=== PATIENT | female | born 1945 | race Caucasian/White ===

== ENCOUNTER → 2017-10-29 | Outpatient (REF) | payer MEDICARE, OTHER ==
[2017-10-29 13:01] LABS: BASO % 0.7 % (0.0-1.0); EOS # 0.2 10^3/uL (0.0-0.50); EOS % 3.8 % (0.0-3.0); HEMATOCRIT 42.1 % (36.0-47.0); HEMOGLOBIN 14.5 g/dl (12.0-15.5); IMMATURE GRANULOCYTE % 0.5 % (0-3.0); LYMPH # 0.7 10^3/uL (1.5-4.5); LYMPH % 16.7 % (24.0-44.0); MEAN CORPUSCULAR HEMOGLOBIN 32.3 pg (27.0-33.0); MEAN CORPUSCULAR HGB CONC 34.4 g/dl (32.0-36.5); MEAN CORPUSCULAR VOLUME 93.8 fl (80.0-96.0); MONO # 0.4 10^3/uL (0.0-0.8); NEUTROPHILS # 2.9 10^3/uL (1.8-7.7); NEUTROPHILS % 69.3 % (36.0-66.0); PLATELET COUNT, AUTOMATED 241 10^3/uL (150-450); RED BLOOD COUNT 4.49 10^6/uL (4.00-5.40); RED CELL DISTRIBUTION WIDTH 12.7 % (11.5-14.5); WHITE BLOOD COUNT 4.2 10^3/uL (4.0-10.0)
[2017-10-29 13:17] LABS: TOTAL 25(OH) VITAMIN D 29.9 NG/ML (30.0-100.0)
[2017-10-29 13:18] LABS: FOLATE 7.8 NG/ML; VITAMIN B12 LEVEL 415 PG/ML
[2017-10-29 13:26] LABS: ALBUMIN 3.6 GM/DL (3.2-5.2); ALBUMIN/GLOBULIN RATIO 1.16 (1.00-1.93); ALKALINE PHOSPHATASE 89 U/L (45-117); ALT/SGPT 22 U/L (12-78); ANION GAP 8 MEQ/L (8-16); AST/SGOT 19 U/L (7-37); BILIRUBIN,TOTAL 0.8 MG/DL (0.2-1.0); BLOOD UREA NITROGEN 12 MG/DL (7-18); CALCIUM LEVEL 9.8 MG/DL (8.8-10.2); CARBON DIOXIDE LEVEL 31 MEQ/L (21-32); CHLORIDE LEVEL 100 MEQ/L (98-107); CREATININE FOR GFR 0.84 MG/DL (0.55-1.30); FREE T3 3.5 PG/ML (2.2-4.0); FREE T4 1.14 NG/DL (0.76-1.46); GLOMERULAR FILTRATION RATE > 60.0 (>39); GLUCOSE, FASTING 85 MG/DL (70-100); POTASSIUM SERUM 4.6 MEQ/L (3.5-5.1); SODIUM LEVEL 139 MEQ/L (136-145); TOTAL PROTEIN 6.7 GM/DL (6.4-8.2)
[2017-10-30 11:12] LABS: THYROID PEROXIDASE ANTIBODY 37.3 U/ML (<60.0)
[2017-11-01 00:09] LABS: ANGIOTENSIN 1 CONVERTING ENZYM 87 U/L (14-82); TISSUE TRANSGLUTAMINASE IgA <2 U/mL (0-3)
[2017-11-01 11:11] LABS: LEVETIRACETAM (KEPPRA) 32.6 ug/mL (10.0-40.0); Lyme Disease IgG/IgM Antibodie <0.91 ISR (0.00-0.90); Lyme Disease IgM Ab Quantitati <0.80 index (0.00-0.79); SSA SJOGRENS A <0.2 AI (0.0-0.9); SSB SJOGRENS B <0.2 AI (0.0-0.9)
[2017-11-05 08:12] LABS: VITAMIN B6,PYRIDOXAL PHOSPHATE 4.5 ug/L (2.0-32.8)
[2017-11-05 08:12] LABS: FREE T4 BY DIALYSIS DIRECT 1.4 ng/dL (.)
== END ==
LOC: M LABDRAW1 09:33
DX: D51.0 Vitamin B12 deficiency anemia due to intrinsic factor deficiency (principal); D52.9 Folate deficiency anemia, unspecified; E53.1 Pyridoxine deficiency; R53.83 Other fatigue; E55.9 Vitamin D deficiency, unspecified
CPT/HCPCS: 82746

== ENCOUNTER 2017-11-10 11:33 | Emergency (ER) | payer MEDICARE, OTHER ==
[2017-11-10 12:54] LABS: KETONE, URINE AUTO RFX NEGATIVE (NEGATIVE); NITRITE, URINE AUTO RFX NEGATIVE (NEGATIVE); RBC, URINE AUTO RFX TNTC /HPF (0-3); SPECIFIC GRAVITY UR AUTO RFX 1.015 (1.002-1.035); SQUAM EPITHELIAL CELL UR AURFX 0 /HPF (0-6)
[2017-11-10 12:55] LABS: LEUKOCYTE ESTERASE UR AUTO RFX 2+ (NEGATIVE); WBC, URINE AUTO RFX TNTC /HPF (0-3)
[2017-11-10] MEDS: PHENAZOPYRIDINE 100 MG TAB PO (12:56)
[2017-11-10] MEDS: CIPROFLOXACIN 500 MG TAB PO (12:56)
== END 2017-11-10 13:24 | disposition home or self-care (01) ==
LOC: M ED 11:33
DX: N30.01 Acute cystitis with hematuria (principal); Z88.8 Allergy status to other drugs, medicaments and biological substances; Z88.1 Allergy status to other antibiotic agents; Z79.899 Other long term (current) drug therapy; Z79.82 Long term (current) use of aspirin; Z79.51 Long term (current) use of inhaled steroids
CPT/HCPCS: 81001

== ENCOUNTER → 2018-03-24 | Outpatient (REF) | payer MEDICARE, OTHER ==
[2018-03-24 12:18] LABS: BASO % 0.7 % (0.0-1.0); EOS % 0.2 % (0.0-3.0); HEMATOCRIT 40.7 % (36.0-47.0); HEMOGLOBIN 13.9 g/dl (12.0-15.5); IMMATURE GRANULOCYTE % 0.2 % (0-3.0); LYMPH # 0.9 10^3/uL (1.5-4.5); MEAN CORPUSCULAR HGB CONC 34.2 g/dl (32.0-36.5); MEAN CORPUSCULAR VOLUME 96.7 fl (80.0-96.0); MONO # 0.4 10^3/uL (0.0-0.8); MONO % 9.8 % (0.0-5.0); NEUTROPHILS # 2.8 10^3/uL (1.8-7.7); NEUTROPHILS % 68.1 % (36.0-66.0); PLATELET COUNT, AUTOMATED 190 10^3/uL (150-450); RED BLOOD COUNT 4.21 10^6/uL (4.00-5.40); RED CELL DISTRIBUTION WIDTH 12.3 % (11.5-14.5); WHITE BLOOD COUNT 4.1 10^3/uL (4.0-10.0)
[2018-03-24 12:51] LABS: ALBUMIN 3.1 GM/DL (3.2-5.2); ALBUMIN/GLOBULIN RATIO 1.07 (1.00-1.93); ALKALINE PHOSPHATASE 81 U/L (45-117); ALT/SGPT 23 U/L (12-78); ANION GAP 9 MEQ/L (8-16); AST/SGOT 20 U/L (7-37); BILIRUBIN,TOTAL 0.6 MG/DL (0.2-1.0); BLOOD UREA NITROGEN 16 MG/DL (7-18); CALCIUM LEVEL 8.5 MG/DL (8.8-10.2); CARBON DIOXIDE LEVEL 28 MEQ/L (21-32); CHLORIDE LEVEL 102 MEQ/L (98-107); CHOLESTEROL LEVEL 177 MG/DL (<200); CHOLESTEROL RISK RATIO 1.923 (<5); CREATININE FOR GFR 0.93 MG/DL (0.55-1.30); GLOMERULAR FILTRATION RATE > 60.0 (>39); GLUCOSE, FASTING 83 MG/DL (70-100); HDL CHOLESTEROL 92 MG/DL (>40); LDL CHOLESTEROL 61 MG/DL (<100); NON-HDL-C 85 MG/DL; POTASSIUM SERUM 3.9 MEQ/L (3.5-5.1); SODIUM LEVEL 139 MEQ/L (136-145); TRIGLYCERIDES LEVEL 121 MG/DL (<150)
[2018-03-24 12:55] LABS: MALB URINE SIEMENS 26.3 MG/L; MAU/CREAT RATIO 13.9 MCG/MG (0.0-30.0)
== END ==
LOC: M LABDRAW1 09:37
DX: Z00.01 Encounter for general adult medical examination with abnormal findings (principal); I10 Essential (primary) hypertension
CPT/HCPCS: 84443

== ENCOUNTER 2018-11-28 09:16 | Day surgery (SDC) | payer MEDICARE, OTHER ==
[~2018-11-28] VITALS: Ht 154.9 cm; Wt 65.8 kg
[~2018-11-28 09:16] MED LIST: ADVAIR; ALBU17IN INH; ASPI81TA60; ASPI81TA85 PO; CALTTAB10 PO; CALTTAB6 PO; CEPA0.05 PO; CIPR-249 PO; COUM2.5T17 PO; CREO3600 PO; HYDR200T3 PO; HYDR25TAB; LEVE500T88 PO; LEVE750XR PO; METO37.5 PO; MONT10TA2; MULTCAP PO; NAPR-855 PO; NORT10SO PO; NORT50CA PO; NS 1,000 ML IV ONE; PERC5TAB12 PO; PRED10TA2; PROAAER10 IN; PROP80CA; PROZ10CA7 PO; PYRI1TAB5 PO; RANI1SYP PO; SPIR-10 PO; SPIR1TAB34 PO; SYMB16INH; TYLE325T5 PO; ciclopirox; plaquenil OR
[2018-11-28] MEDS ORDERED: PROPOFOL 200 MG/20 ML VIAL As Ordered ONE (09:47)
[2018-11-28] MEDS ORDERED: LIDOCAINE 2% INJ 100 MG/5 ML SDV (FOR ANES.) As Ordered ONE (09:47)
[2018-11-28] MEDS ORDERED: fentaNYL 100 MCG/2 ML INJECTION (J3010) As Ordered ONE (10:19)
--- NOTE | 2018-11-28 10:26 | ROOR ---
Patient Name: Mariama Bose Procedure Date: 11/28/2018 10:12 AM Date of : 1945 Age: 73 Room: [facility] Gender: Female Note Status: Finalized Procedure: Upper GI endoscopy Indications: Abdominal pain, Dyspepsia Providers: Jeromy TOSCANO MD Referring MD: Tom Neil MD Requesting Provider: Medicines: Monitored Anesthesia Care Complications: No immediate complications. Procedure: Pre-Anesthesia Assessment: - The heart rate, respiratory rate, oxygen saturations, blood pressure, adequacy of pulmonary ventilation, and response to care were monitored throughout the procedure. The Endoscope was introduced through the mouth, and advanced to the second part of duodenum. The upper GI endoscopy was accomplished without difficulty. The patient tolerated the procedure well. Findings: The esophagus was normal. The stomach was normal. The examined duodenum was normal. Impression: - Normal esophagus. - Normal stomach. - Normal examined duodenum. - No specimens collected. Recommendation: - Continue present medications. - Observe patient's clinical course. Jeromy Toscano MD Jeromy TOSCANO MD 11/28/2018 10:26:35 AM Electronically signed by Jeromy TOSCANO MD Number of Addenda: 0 Note Initiated On: 11/28/2018 10:12 AM Estimated Blood Loss: Estimated blood loss: none.
[2018-11-28] MEDS ORDERED: GLYCOPYRROLATE INJ 0.2 MG/ML 2 ML VIAL As Ordered ONE (10:33)
--- NOTE | 2018-11-28 10:46 | ROOR ---
Patient Name: Mariama Bose Procedure Date: 11/28/2018 10:14 AM Date of : 1945 Age: 73 Room: [facility] Gender: Female Note Status: Finalized Procedure: Colonoscopy Indications: Generalized abdominal pain, Change in bowel habits Providers: Jeromy TOSCANO MD Referring MD: Tom Neil MD Requesting Provider: Medicines: Monitored Anesthesia Care Complications: No immediate complications. Procedure: Pre-Anesthesia Assessment: - The heart rate, respiratory rate, oxygen saturations, blood pressure, adequacy of pulmonary ventilation, and response to care were monitored throughout the procedure. The Colonoscope was introduced through the anus and advanced to 10 cm into the ileum. The colonoscopy was performed without difficulty. The patient tolerated the procedure well. The quality of the bowel preparation was good. Findings: The perianal and digital rectal examinations were normal. Two sessile polyps were found in the sigmoid colon. The polyps were diminutive in size. These polyps were removed with a cold snare. Resection and retrieval were complete. Mild sigmoid diverticulosis and small internal hemorrhoids. The exam was otherwise without abnormality on direct and retroflexion views. Biopsies for histology were taken with a cold forceps from the entire colon for evaluation of microscopic colitis. Impression: - Two diminutive polyps in the sigmoid colon, removed with a cold snare. Resected and retrieved. - Mild sigmoid diverticulosis and small internal hemorrhoids. - The examination was otherwise normal on direct and retroflexion views. - Biopsies were taken with a cold forceps from the entire colon for evaluation of microscopic colitis. Recommendation: - Telephone endoscopist for pathology results in 2 weeks. - Repeat colonoscopy in 5 years for surveillance. Jeromy Toscano MD Jeromy TOSCANO MD 11/28/2018 10:45:42 AM Electronically signed by Jeromy TOSCANO MD Number of Addenda: 0 Note Initiated On: 11/28/2018 10:14 AM Estimated Blood Loss: Estimated blood loss: none.
[2018-11-28 11:21] VITALS: BP 115/61
== END 2018-11-28 11:21 | disposition home or self-care (01) ==
LOC: M OPP 09:16
PROVIDERS: ATTEND Internal Medicine Gastroenterology
DX: R10.84 Generalized abdominal pain (principal); D12.5 Benign neoplasm of sigmoid colon; K57.30 Diverticulosis of large intestine without perforation or abscess without bleeding; K64.8 Other hemorrhoids; R19.4 Change in bowel habit; R10.13 Epigastric pain
CPT/HCPCS: 43235; 45380; 45385; 88305; J3010

== ENCOUNTER 2019-02-02 06:09 | Day surgery (SDC) | payer MEDICARE, OTHER ==
[~2019-02-02] VITALS: Ht 154.9 cm; Wt 66.6 kg
[~2019-02-02 06:09] MED LIST changes: +ACET-861 PO; +ATOR1TAB19 PO; +BUSP5TA PO; +FLUO20CA19 PO; +FLUO40CA PO; +LIDOCAINE 1% MDV 20ML VIAL SQ PRN; +LOPE2TAB12 PO; -NS 1,000 ML IV ONE; +PLAQ200T4 PO; +PROP120C PO
[2019-02-02] MEDS ORDERED: ONDANSETRON 4MG/2ML VIAL (J2405) As Ordered ONE (06:59)
[2019-02-02] MEDS ORDERED: dexameTHASONE 4 MG/ML 1ML VIAL (J1100) As Ordered ONE (06:59)
[2019-02-02] MEDS ORDERED: PROPOFOL 200 MG/20 ML VIAL As Ordered ONE (06:59)
[2019-02-02] MEDS ORDERED: LIDOCAINE 2% INJ 100 MG/5 ML SDV (FOR ANES.) As Ordered ONE (06:59)
[2019-02-02] MEDS ORDERED: ROCURONIUM BROMIDE 50 MG/5 ML VIAL As Ordered ONE (06:59)
[2019-02-02] MEDS ORDERED: SUGAMMADEX SODIUM 500 MG/5 ML VIAL (BRIDION) As Ordered ONE (06:59)
[2019-02-02] MEDS ORDERED: KETOROLAC 60 MG/2 ML VIAL (J1885) As Ordered ONE (07:00)
[2019-02-02] MEDS ORDERED: LR 1,000 ML IV ONE (07:00)
[2019-02-02] MEDS ORDERED: ACETAMINOPHEN 1000MG 100ML IV BTL (OFIRMEV) (J0131 PER 10MG) As Ordered ONE (07:00)
[2019-02-02] MEDS ORDERED: KETAMINE HCL 200 MG/20 ML VIAL As Ordered ONE (07:00)
[2019-02-02] MEDS ORDERED: fentaNYL 100 MCG/2 ML INJECTION (J3010) As Ordered ONE (07:01)
[2019-02-02] MEDS ORDERED: MIDAZOLAM INJ 2 MG/2 ML VIAL (J2250) As Ordered ONE (07:01)
[2019-02-02] MEDS ORDERED: BUPIVACAINE/EPIN 0.25% 30 ML VIAL As Ordered ONE (07:09)
[2019-02-02 07:15] LABS: BLOOD UREA NITROGEN 16 MG/DL (7-18); CALCIUM LEVEL 8.8 MG/DL (8.8-10.2); CARBON DIOXIDE LEVEL 31 MEQ/L (21-32); CHLORIDE LEVEL 104 MEQ/L (98-107); CREATININE FOR GFR 0.93 MG/DL (0.55-1.30); GLOMERULAR FILTRATION RATE > 60.0 (>39); GLUCOSE, FASTING 84 MG/DL (70-100); POTASSIUM SERUM 3.2 MEQ/L (3.5-5.1); SODIUM LEVEL 141 MEQ/L (136-145)
[2019-02-02] MEDS ORDERED: SUCCINYLCHOLINE 100 MG/5 ML SYRINGE (J0330) As Ordered ONE ×2 (07:36→07:54)
[2019-02-02] MEDS ORDERED: GLYCOPYRROLATE INJ 0.2 MG/ML 2 ML VIAL As Ordered ONE (07:57)
[2019-02-02] MEDS ORDERED: ePHEDrine SULFATE 25 MG/5 ML(5MG/ML) SYRINGE As Ordered ONE (08:32)
[2019-02-02] MEDS ORDERED: NORCO, ANEXSIA 5/325MG TABLET (HYDROcodone/ACETAMINOPHEN) PO PRN (09:15)
[2019-02-02] MEDS ORDERED: LR 1,000 ML IV SCH (09:30)
[2019-02-02] MEDS ORDERED: oxyCODONE 5MG TAB PO PRN (09:30)
[2019-02-02] MEDS ORDERED: ONDANSETRON 4MG/2ML VIAL (J2405) IV PRN (09:30)
[2019-02-02] MEDS ORDERED: fentaNYL 100 MCG/2 ML INJECTION (J3010) IV PRN (09:30)
[2019-02-02] MEDS ORDERED: HYDROMORPHONE HCL 0.5 MG/ 0.5 ML SYRINGE (J1170 PER 1) IV PRN (09:30)
--- NOTE | 2019-02-02 10:05 | RO ---
DATE OF PROCEDURE: 02/02/2019 PREOPERATIVE DIAGNOSIS: Biliary dyskinesia. POSTOPERATIVE DIAGNOSIS: Biliary dyskinesia. PROCEDURE: Robotic cholecystectomy. SURGEON: Dr. Lund CHEF TEACHER: None. ANESTHESIA: General. ESTIMATED BLOOD LOSS: 5 mL. COMPLICATIONS: None. INDICATION FOR PROCEDURE: The patient is a 73-year-old female who presents with persistent right upper quadrant pain and was found to have an abnormal HIDA scan with low ejection fraction. Recommendation was to proceed with robotic cholecystectomy. Risks and benefits of the procedure, not limited but including bleeding, infection, hernia formation, damage to surrounding structures, need for further surgery were discussed in detail with the patient, informed consent was obtained, and procedure planned. DESCRIPTION OF PROCEDURE: The patient brought back to operating room 7. After sufficient sedation, the abdomen was sterilely prepped and draped. Next, time-out was done to confirm proper patient and proper procedure. Following that, 8 mm incision was made in the left lower quadrant, Veress needle was inserted and the abdomen was insufflated to 15 mmHg. Next, Veress needle was removed, 8 mm robotic port was used to gain access to the abdomen. Once the abdomen was entered, three more robotic ports were placed diagonally from the left upper quadrant to the right midabdomen. Next, the robot was docked to the ports from the console. The gallbladder was elevated up towards the right shoulder. Cystic duct and cystic artery were dissected free using combination of blunt and sharp dissection. Once they were both clearly identified, they were both doubly clipped and cut. Gallbladder was then dissected from gallbladder fossa using electrocautery, taken out through a 5 mm EndoCatch bag through the second port site from the right. The abdomen was then desufflated. Skin incisions were closed with 4-0 Vicryl subcuticular sutures. The abdomen was cleaned and dried. Steri-Strips, 4x4 and tape were applied, thus ending procedure.
[2019-02-02 10:36] VITALS: BP 130/63
== END 2019-02-02 10:36 | disposition home or self-care (01) ==
LOC: M SDC 06:09
PROVIDERS: ATTEND Surgery
DX: K80.10 Calculus of gallbladder with chronic cholecystitis without obstruction (principal); K21.9 Gastro-esophageal reflux disease without esophagitis; M32.9 Systemic lupus erythematosus, unspecified; J45.909 Unspecified asthma, uncomplicated; Z79.899 Other long term (current) drug therapy; Z88.8 Allergy status to other drugs, medicaments and biological substances
CPT/HCPCS: 36415; 47562; 80048; 88304; J0131; J0330; J1100; J1885; J2250; J2405; J3010

== ENCOUNTER 2019-02-12 14:18 | Inpatient (IN) | payer MEDICARE, OTHER ==
[~2019-02-12] VITALS: Ht 154.9 cm; Wt 66.3 kg
[~2019-02-12 14:18] MED LIST changes: -LIDOCAINE 1% MDV 20ML VIAL SQ PRN
[2019-02-12] MEDS ORDERED: RANI150T14 PO (14:30)
[2019-02-12 15:11] LABS: BASO % 0.4 % (0.0-1.0); EOS % 0.4 % (0.0-3.0); HEMATOCRIT 39.7 % (36.0-47.0); HEMOGLOBIN 13.9 g/dl (12.0-15.5); LYMPH % 18.8 % (24.0-44.0); MEAN CORPUSCULAR HEMOGLOBIN 33.9 pg (27.0-33.0); MEAN CORPUSCULAR VOLUME 96.8 fl (80.0-96.0); MONO # 0.6 10^3/uL (0.0-0.8); MONO % 11.3 % (0.0-5.0); NEUTROPHILS # 3.7 10^3/uL (1.5-8.5); NEUTROPHILS % 68.7 % (36.0-66.0); PLATELET COUNT, AUTOMATED 186 10^3/uL (150-450); WHITE BLOOD COUNT 5.3 10^3/uL (4.0-10.0)
[2019-02-12 15:56] LABS: ALBUMIN 3.5 GM/DL (3.2-5.2); ALT/SGPT 442 U/L (12-78); BILIRUBIN,DIRECT 0.2 MG/DL (0.0-0.2); BILIRUBIN,TOTAL 0.5 MG/DL (0.2-1.0); BLOOD UREA NITROGEN 13 MG/DL (7-18); CALCIUM LEVEL 9.2 MG/DL (8.8-10.2); CARBON DIOXIDE LEVEL 31 MEQ/L (21-32); CHLORIDE LEVEL 101 MEQ/L (98-107); CREATININE FOR GFR 0.94 MG/DL (0.55-1.30); GLOMERULAR FILTRATION RATE > 60.0 (>39); GLUCOSE, FASTING 98 MG/DL (70-100); LIPASE 95 U/L (73-393); POTASSIUM SERUM 3.8 MEQ/L (3.5-5.1); SODIUM LEVEL 137 MEQ/L (136-145); TOTAL PROTEIN 6.2 GM/DL (6.4-8.2)
[2019-02-12] MEDS ORDERED: ISOVUE-370 76% 100ML VIAL (Q9967) As Ordered ONE (18:14)
--- NOTE | 2019-02-12 18:21 | REPVR ---
PROCEDURE INFORMATION: Exam: US Abdomen Limited, Right Upper Quadrant Exam date and time: 02/12/2019 5:33 PM Clinical history: 73 years old, female; Abdominal pain; Generalized; Prior surgery; Surgery date: 3-7 days post-operative; Surgery type: Cholecystectomy; Additional info: Recent cholecystectomy/elevated lft TECHNIQUE: Imaging protocol: Real-time ultrasound of the abdomen with image documentation. Examination was focused on the right upper quadrant. COMPARISON: No relevant prior studies available. FINDINGS: Liver: Hepatic steatosis. Gallbladder: Cholecystectomy. Common bile duct: Normal-sized common biliary duct measuring 6 mm. Pancreas: Pancreas obscured by bowel gas. Right kidney: 9.5 cm right kidney with renal cortical thinning, and echogenic atherosclerotic vasculature. IMPRESSION: 1. No acute abnormality. 2. Hepatic steatosis. Electronically signed by: Jeromy Germain On 02/12/2019 18:21:25 PM
--- NOTE | 2019-02-12 18:57 | REPVR ---
PROCEDURE INFORMATION: Exam: CT Abdomen And Pelvis With Contrast Exam date and time: 02/12/2019 6:08 PM Clinical history: 73 years old, female; Abnormal findings; Abnormal lab test; Elevated liver enzymes; Prior surgery; Surgery date: 3-7 days post-operative; Additional info: Elevaed lfts S/P choecystectomy ? bile leak TECHNIQUE: Imaging protocol: Computed tomography of the abdomen and pelvis with intravenous contrast. Radiation optimization: All CT scans at this facility use at least one of these dose optimization techniques: automated exposure control; mA and/or kV adjustment per patient size (includes targeted exams where dose is matched to clinical indication); or iterative reconstruction. Contrast material: ISOVUE 370; Contrast volume: 100 ml; Contrast route: IV; COMPARISON: LIVER US 02/12/2019 5:38 PM FINDINGS: Liver: Small, less than 5 mm, liver hypodensity. Highly likely to be benign and does not require follow-up imaging or biopsy per ACR. Trace fluid between the liver and hepatic flexure at site of previous cholecystectomy, expected. Gallbladder and bile ducts: Cholecystectomy. Moderate intra-and extrahepatic biliary duct dilatation. Pancreas: Pancreas atrophy. Spleen: Normal. No splenomegaly. Adrenals: Normal. No mass. Kidneys and ureters: 2 cm left renal cyst. Stomach and bowel: Gastric antral mucosal enhancement with submucosal edema-gastritis. Right hemicolon constipation. Appendix: No evidence of appendicitis. Intraperitoneal space: Unremarkable. No free air. No significant fluid collection. Vasculature: Retroaortic left renal vein. Lymph nodes: Unremarkable. No enlarged lymph nodes. Bladder: Unremarkable as visualized. Reproductive: Unremarkable as visualized. Bones/joints: Mild lumbar spondylosis. Soft tissues: Unremarkable. IMPRESSION: 1. Gastric antral mucosal enhancement with submucosal edema-gastritis. 2. Cholecystectomy. Moderate intra-and extrahepatic biliary duct dilatation. 3. Trace fluid between the liver and hepatic flexure at site of previous cholecystectomy, expected. 4. Right hemicolon constipation. COMMENT: Consistent with the [employer]'s Incidental Findings Committee Report (J Am Reva Radiol 2010): Unless the patient's specific circumstances suggest otherwise, any liver lesion 0.5 cm or less, any cystic kidney lesion less than 1.0 cm, and/or any adrenal lesion 1.0 cm or less not otherwise characterized in this report as possessing suspicious or indeterminate imaging features is/are highly likely to be benign and do not require follow-up imaging or biopsy. Electronically signed by: Jeromy Germain On 02/12/2019 18:56:54 PM
[2019-02-12] MEDS ORDERED: ATOR1TAB19 PO (19:59)
[2019-02-12] MEDS ORDERED: LEVE750XR PO (19:59)
[2019-02-12] MEDS ORDERED: HYDR200T3 PO (20:33)
[2019-02-12] MEDS: busPIRone 5 MG TAB PO SCH (22:25)
[2019-02-12 22:45] VITALS: BP 119/62
[2019-02-12] MEDS: raNITIdine SYRUP 150 MG/10 ML UDC PO SCH (23:00)
[2019-02-13] MEDS: D5W/0.9% SODIUM CHLORIDE 1,000 ML IV SCH ×3 (00:46→18:32)
[2019-02-13] MEDS: levETIRAcetam **XR** 500 MG TABLET PO SCH ×2 (00:47→21:51)
[2019-02-13 04:00] VITALS: BP 119/59
--- NOTE | 2019-02-13 04:27 | HPEPDOC ---
General Date of Admission Feb 12, 2019 at 20:38 Date of Service: Feb 12, 2019 Attending Physician: RUDDY MARKHAM MD Chief Complaint The patient is a 73-year-old female admitted with a reason for visit of Elevated Liver Enzymes, Ruq Abdominal Pain. Source: Patient Exam Limitations: No limitations Timing/Duration: Week(s) Severity: Moderate Associated Symptoms: Nausea, Vomiting, Other (diarrhea, right upper quadrant pain) History of Present Illness Ms. Bose is a pleasant 73 yo woman with a history of Lupus, Sjgren's on Plaquenil, migraines, epilepsy, depression and recent history of a laparoscopic cholecystectomy on 02/[address] Lund for cholelithiasis with months of biliary colic, who returns to the ED with persistent right upper quadrant pain. She reports seven month history of right upper quadrant pain and associated nausea, occasional emesis and 4-5 water diarrhea daily. She had a lap babita on 02/02 that was uneventful and was discharged home. Of note, per ED report she had an office visit on 02/10 with outpatient labs (not in [facility]) that noted an AST of 1100 and ALT 608. She reports a stable post op course without fevers, worsening of her abdominal pain but instead persistence of the pain and its association with eating. She also notes persistent diarrhea that is often postprandial and has resulted in anxiety about eating as she has had accidents and reports a twenty pound weight loss in the last 7 months. She otherwise denies any fever, chills, noted melena, hematochezia, hematemesis, dysuria, hematuria. In the ED, she was hemodynamically stable and afebrile. Initial work up was notable for improved LFTs from the reported 02/10 outpatient labs with AST 112, ALT 442, Tbili 0.5, alk phos 476. Her WBC was 5.3, H/H 13.9/39.7, lipase 95, creatinine 0.94 at her recent baseline with normal electrolytes. She had a RUQ US that showed a normal CBD without dilatation, and a CT A/P that showed moderate intra and extrahepatic duct dilatation, gastritis and an atrophied pancreas. The ED provider spoke with surgery (Dr. Montes) who recommended admission to medicine with a GI consult and HIDA scan to investigate biliary tree pathology. Home Medications Scheduled Atorvastatin Calcium (Atorvastatin Calcium) 10 Mg Tablet, 5 MG PO DAILY, (Reported) Buspirone HCl (Buspirone HCl) 5 Mg Tablet, 5 MG PO BID, (Reported) Segundo/D3/Mag11/Zinc/Hvac Engineer/Ryan/Bor (Caltrate 600+D Plus Tablet) 1 Each Tablet, 1 TAB PO BID, (Reported) Fluoxetine Hcl (Fluoxetine HCl) 20 Mg Capsule, 20 MG PO DAILY, (Reported) Hydroxychloroquine Sulfate (Plaquenil) 200 Mg Tablet, 200 MG PO DAILY, (Reported) TAKEN WITH ANOTHER HALF TABLET TO GET 300MG Hydroxychloroquine Sulfate (Hydroxychloroquine Sulfate) 200 Mg Tablet, 100 MG PO DAILY, (Reported) TAKEN WITH 200MG FOR TOTAL OF 300 Levetiracetam (Levetiracetam ER) 500 Mg Tab, 500 MG PO QHS, (Reported) TOTAL DOSE OF 2000MG Levetiracetam (Levetiracetam ER) 750 Mg Tab.er.24h, 1,500 MG PO QHS, (Reported) Nortriptyline HCl (Nortriptyline HCl) 50 Mg Capsule, 100 MG PO QHS, (Reported) Propranolol HCl (Propranolol HCl ER) 120 Mg Cap.sa.24h, 120 MG PO QHS, (Reported) Ranitidine HCl (Ranitidine HCl) 150 Mg Tablet, 1 TAB PO BID, (Reported) Spironolactone (Spironolactone) 25 Mg Tablet, 25 MG PO QAM, (Reported) Scheduled PRN Loperamide HCl (Imodium A-D) 2 Mg Tablet, 2 MG PO PRN PRN for DIARRHEA, (Reported) Allergies Coded Allergies: Estrogens (Verified Allergy, Intermediate, migraine, 01/23/19) nitrofurantoin (Verified Allergy, Intermediate, hives/rash, 01/23/19) Past Medical History Medical History Lupus Sjgren's Raynaud's Epilepsy Mnire's chronic back pain GERD MDD Anxiety Osteoarthritis recent cholecystitis s/p lap babita Surgical History Tonsillectomy Carpal tunnel release Rotator cuff surgery Left knee surgery x 3 Right knee surgery Right and left plantar fasciotomies Lap cholecystectomy Family History Significant Family History: No pertinent family hx Social History * Smoker: Denies Alcohol: occationally (1-2 glasses daily, no history of withdrawal when she went long periods without) Drugs: denies Recent Travel/Sick Contacts: Denies: Recent travel, Recent sick contacts Psychosocial History: Anxiety, Depression . Social daily 1-2 glass of wine drinker, non smoker. Sails to [place] frequently. Retired. A-FIB/CHADSVASC A-FIB History Current/History of A-Fib/PAF?: No Current PO Anticoag Therapy: No Age/Risk Factor Scoring CHADSVASC: CHADSVASC Response (Comments) Value Age Risk Factor Age 65-74 years old 1 Gender Risk Factor Female 1 Hx of CHF No 0 Hx of HTN No 0 Hx of Stroke/TIA/or VTE No 0 Hx of Diabetes No 0 Hx of Vascular Disease No 0 Total 2 Treatment Treatment ordered: NONE Reason Anticoagulant not given: Not indicated/[id number] Review of Systems Constitutional: Reports: Weight Loss (20lb weight loss in 7 months); Denies: Chills, Fever, Night Sweats Eyes: Denies: Pain, Vision change ENT: Denies: Head Aches, Ear Pain, Dysphagia Skin: Denies: Rash, Lesions, Breakdown Pulmonary: Denies: Dyspnea, Cough Cardiovascular: Denies: Chest Pain, Palpitations, Orthopnea, Paroxysmal Noc. Dyspnea, Lt Headedness Gastrointestinal: Reports: Nausea, Vomiting (occasional), Abdominal Pain (RUQ), Diarrhea (4-5 episodes per day, usually postprandial fatty stools); Denies: Melena, Hematochezia Genitourinary: Denies: Dysuria, Frequency, Incontinence, Retention Hematologic: Denies: Bruising, Bleeding Excessively Endocrine: Reports: Cold Intolerance; Denies: Polydipsia, Polyphagia, Polyuria, Heat Intolerance, Other Endocrine Sx Musculoskeletal: Denies: Neck Pain, Back Pain, Joint Pain, Muscle Pain, Spasms Neurological: Denies: Weakness, Numbness, Change in speech, Confusion Psych: Reports: Mood Normal; Denies: Depression, Memory Issues Physical Examination General Exam: Positive: Alert, Cooperative, No Acute Distress Eye Exam: Positive: PERRLA, Conjunctiva & lids normal, EOMI; Negative: Sclera icteric ENT Exam: Positive: Atraumatic, Mucous membr. moist/pink, Pharynx Normal Neck Exam: Positive: Supple; Negative: JVD, thyromegaly Chest Exam: Positive: Clear to auscultation, Normal air movement Heart Exam: Positive: Rate Normal, Regular Rhythm, Normal S1, Normal S2; Negative: Murmurs, Rubs Abdomen Exam: Positive: Normal bowel sounds, Soft, Tenderness (positive castaneda's sign); Negative: Hepatospenomegaly, Mass, Hernia Extremity Exam: Positive: Normal pulses; Negative: Clubbing, Cyanosis, Edema, Tenderness, Swelling Skin Exam: Positive: Nl turgor and temperature; Negative: Breakdown, Lesion Neuro Exam: Positive: Normal Speech, Strength at 5/5 X4 ext, Normal Tone, Cranial Nerves 3-12 NL Psych Exam: Positive: Mental status NL, Mood NL, Oriented x 3 Vital Signs Vital Signs Date Time Temp Pulse Resp B/P (MAP) Pulse Ox O2 Delivery O2 Flow Rate FiO2 02/12/19 22:45 97.7 53 20 119/62 (81) 99 Room Air Laboratory Data Labs 24H Laboratory Tests 2 02/12/19 15:05: Immature Granulocyte % (Auto) 0.4, Neutrophils (%) (Auto) 68.7H, Lymphocytes (%) (Auto) 18.8L, Monocytes (%) (Auto) 11.3H, Eosinophils (%) (Auto) 0.4, Basophils (%) (Auto) 0.4, Neutrophils # (Auto) 3.7, Lymphocytes # (Auto) 1.0L, Monocytes # (Auto) 0.6, Eosinophils # (Auto) 0.0, Basophils # (Auto) 0.0, Nucleated Red Blood Cells % (auto) 0.0, Anion Gap 5L, Glomerular Filtration Rate > 60.0, Calcium Level 9.2, Total Bilirubin 0.5, Direct Bilirubin 0.2, Aspartate Amino Transf (AST/SGOT) 112H, Alanine Aminotransferase (ALT/SGPT) 442H, Alkaline Phosphatase 476H, Total Protein 6.2L, Albumin 3.5, Albumin/Globulin Ratio 1.30, Lipase 95 CBC/BMP Laboratory Tests 02/12/19 15:05 Assessment/Plan 73 yo woman with a history of lupus, Sjgren's on Plaquenil, chronic diarrhea for 7 months with associated weight loss, and biliary cholic with recent lap babita on 02/02 with outpatient noted transaminitis who now presents to the ED with persistent RUQ pain with studies revealing intra and extrahepatic duct dilatation with seemingly normal CBD and improving transaminitis and normal lipase concerning for retained biliary tree stone vs. postcholecystectomy syndrome. Per ED provider, surgery suggested HIDA scan and GI consult that have now been placed and will call GI in the morning. Plan: RUQ pain: - Moderate intra-and extrahepatic biliary duct dilatation with normal appearing CBD per CT and RUQ US, with trace fluid between the liver and hepatic flexure at site of previous cholecystectomy as expected -NPO in the morning for HIDA scan -Ordered HIDA -GI consult order placed, to call covering provider in the morning -Will officially consult surgery if indicated but per imaging at this time, no post babita issues per imaging -Pain has been minimal, but will add regimen if indicated Chronic diarrhea: -No history of IBD or IBS prior to 7 months ago -On Plaquenil without significant dose changes in the last few months -stool Na and K to calculate fecal osmotic gap for differentiating osmotic vs. secretory diarrhea -diarrhea infectious panel -fecal calprotectin -fluids D5NS @ 125cc/hr Lupus, Sjgren's, Raynaud's -Continue home Plaquenil Epilepsy: -continue home keppra Hyperlipidemia: -continue home lipitor MDD: -continue home buspar, prozac Other: -continue home nortriptyline, propanolol, aldactone DVT prophylaxis: lovenox Diet: NPO this AM for HIDA scan Plan / VTE VTE Prophylaxis Ordered?: Yes RUDDY MARKHAM MD Feb 13, 2019 04:06
[2019-02-13 07:28] LABS: HEMATOCRIT 36.1 % (36.0-47.0); HEMOGLOBIN 12.6 g/dl (12.0-15.5); MEAN CORPUSCULAR HEMOGLOBIN 33.9 pg (27.0-33.0); MEAN CORPUSCULAR HGB CONC 34.9 g/dl (32.0-36.5); PLATELET COUNT, AUTOMATED 146 10^3/uL (150-450); RED BLOOD COUNT 3.72 10^6/uL (4.00-5.40); WHITE BLOOD COUNT 3.8 10^3/uL (4.0-10.0)
[2019-02-13 08:00] VITALS: BP 110/58
[2019-02-13 08:21] LABS: ALBUMIN 2.8 GM/DL (3.2-5.2); ALT/SGPT 306 U/L (12-78); BILIRUBIN,TOTAL 0.5 MG/DL (0.2-1.0); BLOOD UREA NITROGEN 8 MG/DL (7-18); CALCIUM LEVEL 8.6 MG/DL (8.8-10.2); CARBON DIOXIDE LEVEL 31 MEQ/L (21-32); CHLORIDE LEVEL 107 MEQ/L (98-107); CREATININE FOR GFR 0.76 MG/DL (0.55-1.30); GLOMERULAR FILTRATION RATE > 60.0 (>39); GLUCOSE, FASTING 109 MG/DL (70-100); POTASSIUM SERUM 2.9 MEQ/L (3.5-5.1); SODIUM LEVEL 141 MEQ/L (136-145); TOTAL PROTEIN 5.8 GM/DL (6.4-8.2)
[2019-02-13] MEDS: FLUoxetine 20 MG CAP PO SCH (08:29)
[2019-02-13] MEDS: HYDROXYCHLOROQUINE 200 MG TAB PO SCH (08:29)
[2019-02-13] MEDS: raNITIdine SYRUP 150 MG/10 ML UDC PO SCH ×2 (08:29→21:51)
[2019-02-13] MEDS: ENOXAPARIN 40 MG/0.4 ML SYRINGE (J1650) SC SCH (08:29)
[2019-02-13] MEDS: ATORVASTATIN 5MG PER 1/2 TABLET PO SCH (08:29)
[2019-02-13] MEDS ORDERED: PILL CUTTER 1 EACH XX PRN (08:30)
[2019-02-13] MEDS: SPIRONOLACTONE 25 MG TAB PO SCH (08:43)
[2019-02-13] MEDS ORDERED: HYDROXYCHLOROQUINE 200 MG TAB PO SCH (09:00)
[2019-02-13] MEDS ORDERED: FLUBLOK(EGG FREE)(QUAD)INFLUENZA VACC 0.5ML SYRINGE (90682)18YRS&OLDER IM ONE (09:00)
[2019-02-13] MEDS: busPIRone 5 MG TAB PO SCH ×2 (10:28→21:51)
[2019-02-13] MEDS ORDERED: KCL 10MEQ/100ML SWI (KRUN) 10 MEQ in IV 1 EA IV ONE (11:45)
--- NOTE | 2019-02-13 14:05 | REP ---
REASON: Persistent pain after lap-babita. PRIORS: None. After the intravenous administration of 6.6 mCi of technetium 99m Choletec, hepatobiliary imaging was performed. There is symmetric distribution of the radiotracer throughout the hepatocytes. There is expected activity in the biliary radicles and common bile duct. There is no evidence of an abnormal collection of radiotracer in the right upper quadrant. IMPRESSION: Findings are within normal limits. Electronically Signed by Gary Murphy DO 02/13/2019 04:17 P
[2019-02-13 16:00] VITALS: BP 110/56
--- NOTE | 2019-02-13 18:29 | IPNPDOC ---
Text Note Date of Service The patient was seen on 02/13/19. NOTE SUBJECTIVE: Ms. Bose is awake, alert and conversant. Her symptoms are mild to moderate; some right upper quadrant pain and mild nausea. She's not had diarrhea today. Patient was admitted with concern for obstruction to her biliary tree with elevated liver enzymes. The patient is status post cholecystectomy 2 weeks ago. OBJECTIVE: Physical exam HENT: Neck is supple with no adenopathy or thyromegaly. She has very dry mucosa. This is due to her underlying Sjogren's. Cardiovascular exam: Regular rate and rhythm. Respiratory: Fairly clear to auscultation. Abdomen: Generally soft, mild tenderness to palpation but no guarding or rebound, bowel tones are present. Extremities: No peripheral edema or lesions ASSESSMENT/PLAN: 1. Right upper quadrant pain. Imaging shows intra-and extrahepatic biliary duct dilatation. Concern is raised for residual choledocholithiasis. The patient is status post laparoscopic cholecystectomy. HIDA scan obtained is normal. Would strongly consider MRCP. 2. Autoimmune disease. The patient has a history of lupus, Sjogren's and Raynaud's. She continues on her home regimen of Plaquenil. Her symptoms do not otherwise correlate with her right upper quadrant pain issue. 3. Seizure disorder, unspecified. Patient remains stable on Keppra. VS,Fishbone, I+O VS, Fishbone, I+O Laboratory Tests 02/13/19 07:09 Vital Signs Date Time Temp Pulse Resp B/P (MAP) Pulse Ox O2 Delivery O2 Flow Rate FiO2 02/13/19 16:00 97.5 51 16 110/56 (74) 98 Room Air I&O- Last 24 Hours up to 6 AM 02/13/19 06:00 Intake Total 656 ml Output Total 350 ml Balance 306 ml SERENITY ANDREW MD Feb 13, 2019 18:28
[2019-02-13] MEDS ORDERED: ONDANSETRON 4MG/2ML VIAL (J2405) IV PRN (18:30)
[2019-02-13] MEDS ORDERED: MORPHINE 4 MG/ML 1ML VIAL/SYRINGE (J2270) IV PRN (18:30)
[2019-02-13 20:00] VITALS: BP 100/62
[2019-02-13] MEDS ORDERED: levETIRAcetam **XR** 500 MG TABLET PO SCH (21:00)
[2019-02-13] MEDS ORDERED: NORTRIPTYLINE 25 MG CAP PO SCH (21:00)
[2019-02-13] MEDS ORDERED: PROPRANOLOL 60 MG LA CAP PO SCH (21:00)
[2019-02-13] MEDS ORDERED: levETIRAcetam **XR** 750MG TABLET (KEPPRA XR) PO SCH (21:00)
[2019-02-13] MEDS ORDERED: ALPRAZolam 0.25 MG TAB PO ONE (21:00)
[2019-02-13 21:50] VITALS: BP 122/68
[2019-02-14] MEDS: D5W/0.9% SODIUM CHLORIDE 1,000 ML IV SCH (04:11)
[2019-02-14 05:45] VITALS: BP 102/53
[2019-02-14 08:00] VITALS: BP 107/52
[2019-02-14 08:09] LABS: HEMATOCRIT 34.3 % (36.0-47.0); HEMOGLOBIN 11.4 g/dl (12.0-15.5); MEAN CORPUSCULAR HEMOGLOBIN 32.9 pg (27.0-33.0); MEAN CORPUSCULAR HGB CONC 33.2 g/dl (32.0-36.5); MEAN CORPUSCULAR VOLUME 99.1 fl (80.0-96.0); PLATELET COUNT, AUTOMATED 162 10^3/uL (150-450); RED BLOOD COUNT 3.46 10^6/uL (4.00-5.40); WHITE BLOOD COUNT 4.1 10^3/uL (4.0-10.0)
[2019-02-14 08:39] LABS: ALBUMIN 2.5 GM/DL (3.2-5.2); ALT/SGPT 209 U/L (12-78); BILIRUBIN,TOTAL 0.4 MG/DL (0.2-1.0); BLOOD UREA NITROGEN 7 MG/DL (7-18); CALCIUM LEVEL 8.5 MG/DL (8.8-10.2); CARBON DIOXIDE LEVEL 28 MEQ/L (21-32); CHLORIDE LEVEL 111 MEQ/L (98-107); CREATININE FOR GFR 0.73 MG/DL (0.55-1.30); GLOMERULAR FILTRATION RATE > 60.0 (>39); GLUCOSE, FASTING 100 MG/DL (70-100); POTASSIUM SERUM 3.5 MEQ/L (3.5-5.1); SODIUM LEVEL 144 MEQ/L (136-145); TOTAL PROTEIN 5.4 GM/DL (6.4-8.2)
--- NOTE | 2019-02-14 08:46 | REP ---
MRCP without contrast: History: Duct dilation. Post cholecystectomy. Gallbladder surgery 2 weeks ago. Right-sided abdominal pain. Comparison CT study and HIDA scan February 12 and February 13, 2019. Technique: Axial and coronal T2-weighted scans were obtained. MRCP acquisition is acquired and maximum intensity projection images are generated and reviewed. MRCP findings: There is a tiny sliver of fluid along the lateral aspect of the liver. No postoperative collection is seen. The intrahepatic and extrahepatic bile ducts are mildly to moderately dilated. CBD measures 10 mm. No filling defect or mass lesion is seen. Main pancreatic duct is dilated as well mild in degree measuring 3 mm. No anatomic anomaly is seen. The cystic duct is mildly prominent. There are small bilateral renal cortical cysts. No focal liver lesion is appreciated. No adrenal lesion is seen. Spleen is unremarkable. Impression: Moderately dilated intra and extrahepatic bile ducts, CBD 10 mm. Mildly dilated main pancreatic duct. No evidence of choledocholithiasis or mass effect. Electronically Signed by Damir Howell MD 02/14/2019 09:45 A
[2019-02-14] MEDS: SPIRONOLACTONE 25 MG TAB PO SCH (09:00)
[2019-02-14] MEDS: FLUoxetine 20 MG CAP PO SCH (09:05)
[2019-02-14] MEDS: raNITIdine SYRUP 150 MG/10 ML UDC PO SCH (09:05)
[2019-02-14] MEDS: HYDROXYCHLOROQUINE 200 MG TAB PO SCH (09:05)
[2019-02-14] MEDS: busPIRone 5 MG TAB PO SCH (09:05)
[2019-02-14] MEDS: ATORVASTATIN 5MG PER 1/2 TABLET PO SCH (09:05)
[2019-02-14] MEDS: ENOXAPARIN 40 MG/0.4 ML SYRINGE (J1650) SC SCH (09:05)
--- NOTE | 2019-02-14 13:44 | DS.PDOC ---
Discharge Summary General Date of Admission Feb 12, 2019 at 20:38 Date of Discharge February 14, 2019 Discharge Summary PROCEDURES PERFORMED DURING STAY: [None]. ADMITTING DIAGNOSES: 1. . DISCHARGE DIAGNOSES: 1. . COMPLICATIONS/CHIEF COMPLAINT: Elevated Liver Enzymes, Ruq Abdominal Pain. HISTORY OF PRESENT ILLNESS: . HOSPITAL COURSE: . DISCHARGE MEDICATIONS: Please see below. ALLERGIES: Please see below. PHYSICAL EXAMINATION ON DISCHARGE: VITAL SIGNS: Please see below. GENERAL: HEENT: NECK: CARDIOVASCULAR EXAMINATION: RESPIRATORY EXAMINATION: ABDOMINAL EXAMINATION: EXTREMITIES: SKIN: NEUROLOGICAL EXAMINATION: PSYCHIATRIC EXAMINATION: LABORATORY DATA: Please see below. IMAGING: PROGNOSIS: ACTIVITY: [As tolerated]. DIET: DISCHARGE PLAN: DISPOSITION: . DISCHARGE INSTRUCTIONS: 1. . ITEMS TO FOLLOWUP ON ON OUTPATIENT: 1. . DISCHARGE CONDITION: [Stable]. TIME SPENT ON DISCHARGE: Greater than minutes. Vital Signs/I&Os Vital Signs Date Time Temp Pulse Resp B/P (MAP) Pulse Ox O2 Delivery O2 Flow Rate FiO2 02/14/19 08:00 97.9 52 18 107/52 (70) 98 Room Air I&O- Last 24 Hours up to 6 AM 02/14/19 06:00 Intake Total 2550 ml Output Total 950 ml Balance 1600 ml Laboratory Data Labs 24H Laboratory Tests 2 02/14/19 07:29: Nucleated Red Blood Cells % (auto) 0.0, Anion Gap 5L, Glomerular Filtration Rate > 60.0, Calcium Level 8.5L, Total Bilirubin 0.4, Aspartate Amino Transf (AST/SGOT) 38H, Alanine Aminotransferase (ALT/SGPT) 209H, Alkaline Phosphatase 320H, Total Protein 5.4L, Albumin 2.5L, Albumin/Globulin Ratio 0.86L CBC/BMP Laboratory Tests 02/14/19 07:29 Microbiology Microbiology 02/12/19 Gastrointestinal Tract Panel (PCR) - Final, Complete Discharge Medications Scheduled Atorvastatin Calcium (Atorvastatin Calcium) 10 Mg Tablet, 5 MG PO DAILY, (Reported) Buspirone HCl (Buspirone HCl) 5 Mg Tablet, 5 MG PO BID, (Reported) Segundo/D3/Mag11/Zinc/Nutrition Aides Teacher/Ryan/Bor (Caltrate 600+D Plus Tablet) 1 Each Tablet, 1 TAB PO BID, (Reported) Fluoxetine Hcl (Fluoxetine HCl) 20 Mg Capsule, 20 MG PO DAILY, (Reported) Hydroxychloroquine Sulfate (Plaquenil) 200 Mg Tablet, 200 MG PO DAILY, (Reported) TAKEN WITH ANOTHER HALF TABLET TO GET 300MG Hydroxychloroquine Sulfate (Hydroxychloroquine Sulfate) 200 Mg Tablet, 100 MG PO DAILY, (Reported) TAKEN WITH 200MG FOR TOTAL OF 300 Levetiracetam (Levetiracetam ER) 500 Mg Tab, 500 MG PO QHS, (Reported) TOTAL DOSE OF 2000MG Levetiracetam (Levetiracetam ER) 750 Mg Tab.er.24h, 1,500 MG PO QHS, (Reported) Nortriptyline HCl (Nortriptyline HCl) 50 Mg Capsule, 100 MG PO QHS, (Reported) Propranolol HCl (Propranolol HCl ER) 120 Mg Cap.sa.24h, 120 MG PO QHS, (Reported) Ranitidine HCl (Ranitidine HCl) 150 Mg Tablet, 1 TAB PO BID, (Reported) Spironolactone (Spironolactone) 25 Mg Tablet, 25 MG PO QAM, (Reported) Scheduled PRN Loperamide HCl (Imodium A-D) 2 Mg Tablet, 2 MG PO PRN PRN for DIARRHEA, (Reported) Allergies Coded Allergies: Estrogens (Verified Allergy, Intermediate, migraine, 01/23/19) nitrofurantoin (Verified Allergy, Intermediate, hives/rash, 01/23/19) SERENITY ANDREW MD Feb 14, 2019 13:44
--- NOTE | 2019-02-14 20:31 | DS.PDOC ---
Discharge Summary General Date of Admission Feb 12, 2019 at 20:38 Date of Discharge February 14, 2019 Specialist/Consultants Involve: BHUPINDER ROBERTS MD Specialist/Consultants Involve Dr. Byron Bragg Discharge Summary PROCEDURES PERFORMED DURING STAY: [None]. ADMITTING DIAGNOSES: 1. [Elevated liver enzymes]. DISCHARGE DIAGNOSES: Elevated liver enzymes, biliary colic, lupus, Sjogrens syndrome, migraine headaches, epilepsy, depression, chronic diarrhea ]. COMPLICATIONS/CHIEF COMPLAINT: Elevated Liver Enzymes, Ruq Abdominal Pain. HISTORY OF PRESENT ILLNESS/HOSPITAL COURSE: [This is a 73 year female who had been undergoing workup for chronic diarrhea and weight loss. She has underlying history of significant autoimmune disease. She was sent to the ER with findings of elevated liver enzymes--AST 1100, ALT 608, ALK PHOS 476, bilirubin 0.5 and lipase 95. Of interest the patient had had laparoscopic cholecystectomy 2 weeks prior to admission. Concern was raised for possible retained stones. The patient was admitted to the med-surg floor. She was seen by the surgery service who recommended HIDA scan; HIDA scan was normal. Subsequent MRCP showed dilated ducts but no choledocholithiasis or other lesions. Elevated enzymes began to improve. Given the patient's autoimmune disease could consider other diagnoses such as primary sclerosing cholangitis or others and check disease markers such as antimitochondrial antibody or pANCA.]. DISCHARGE MEDICATIONS: Please see below. ALLERGIES: Please see below. PHYSICAL EXAMINATION ON DISCHARGE: HENT: Neck is supple with no adenopathy or thyromegaly. She has very dry mucosa. This is due to her underlying Sjogren's. Cardiovascular exam: Regular rate and rhythm. Respiratory: Fairly clear to auscultation. Abdomen: Generally soft, mild tenderness to palpation but no guarding or rebound, bowel tones are present. Extremities: No peripheral edema or lesions LABORATORY DATA: Please see below. IMAGING: MRCP [Impression: Moderately dilated intra and extrahepatic bile ducts, CBD 10 mm. Mildly dilated main pancreatic duct. No evidence of choledocholithiasis or mass effect. Electronically Signed by Damir Howell MD 02/14/2019 09:45 A] PROGNOSIS: ACTIVITY: [As tolerated]. DIET: [at tolerated] DISCHARGE PLAN: [The patient is stable for discharge to home. She can follow-up with her erector operator and with her instructional support assistant, Dr. Macias within the next week or 2 for further diagnostic evaluation.] DISPOSITION: 01 Home, Self-Care. DISCHARGE CONDITION: [Stable]. TIME SPENT ON DISCHARGE: Greater than [40] minutes. Vital Signs/I&Os Vital Signs Date Time Temp Pulse Resp B/P (MAP) Pulse Ox O2 Delivery O2 Flow Rate FiO2 02/14/19 08:00 97.9 52 18 107/52 (70) 98 Room Air I&O- Last 24 Hours up to 6 AM 02/14/19 08:00 Intake Total 2550 ml Output Total 950 ml Balance 1600 ml Laboratory Data Labs 24H Laboratory Tests 2 02/14/19 07:29: Nucleated Red Blood Cells % (auto) 0.0, Anion Gap 5L, Glomerular Filtration Rate > 60.0, Calcium Level 8.5L, Total Bilirubin 0.4, Aspartate Amino Transf (AST/SGOT) 38H, Alanine Aminotransferase (ALT/SGPT) 209H, Alkaline Phosphatase 320H, Total Protein 5.4L, Albumin 2.5L, Albumin/Globulin Ratio 0.86L CBC/BMP Laboratory Tests 02/14/19 07:29 Microbiology Microbiology 02/12/19 Gastrointestinal Tract Panel (PCR) - Final, Complete Discharge Medications Scheduled Atorvastatin Calcium (Atorvastatin Calcium) 10 Mg Tablet, 5 MG PO DAILY, (Reported) Buspirone HCl (Buspirone HCl) 5 Mg Tablet, 5 MG PO BID, (Reported) Segundo/D3/Mag11/Zinc/Client Sales And Service Officer/Ryan/Bor (Caltrate 600+D Plus Tablet) 1 Each Tablet, 1 TAB PO BID, (Reported) Fluoxetine Hcl (Fluoxetine HCl) 20 Mg Capsule, 20 MG PO DAILY, (Reported) Hydroxychloroquine Sulfate (Plaquenil) 200 Mg Tablet, 200 MG PO DAILY, (Reported) TAKEN WITH ANOTHER HALF TABLET TO GET 300MG Hydroxychloroquine Sulfate (Hydroxychloroquine Sulfate) 200 Mg Tablet, 100 MG PO DAILY, (Reported) TAKEN WITH 200MG FOR TOTAL OF 300 Levetiracetam (Levetiracetam ER) 500 Mg Tab, 500 MG PO QHS, (Reported) TOTAL DOSE OF 2000MG Levetiracetam (Levetiracetam ER) 750 Mg Tab.er.24h, 1,500 MG PO QHS, (Reported) Nortriptyline HCl (Nortriptyline HCl) 50 Mg Capsule, 100 MG PO QHS, (Reported) Propranolol HCl (Propranolol HCl ER) 120 Mg Cap.sa.24h, 120 MG PO QHS, (Reported) Ranitidine HCl (Ranitidine HCl) 150 Mg Tablet, 1 TAB PO BID, (Reported) Spironolactone (Spironolactone) 25 Mg Tablet, 25 MG PO QAM, (Reported) Scheduled PRN Loperamide HCl (Imodium A-D) 2 Mg Tablet, 2 MG PO PRN PRN for DIARRHEA, (Reported) Allergies Coded Allergies: Estrogens (Verified Allergy, Intermediate, migraine, 01/23/19) nitrofurantoin (Verified Allergy, Intermediate, hives/rash, 01/23/19) SERENITY ANDREW MD Feb 14, 2019 20:31
--- NOTE | 2019-02-14 21:55 | CR ---
DATE OF CONSULTATION: 02/14/2019 Mariama is a 73-year-old white female who is admitted to [facility] for evaluation of right upper quadrant pain of unknown etiology. The patient is being seen by gastroenterology (GI) for evaluation of the right upper quadrant pain and abnormal liver functions. The patient has multiple medical problems including lupus, Sjogren's syndrome. She also has history of migraines, epilepsy, depression and she is status post of laparoscopic cholecystectomy on 02/02/[address] Lund. The patient apparently had evidence for cholelithiasis and has had apparent several months of biliary colic. She has been feeling ill since June of 2018 with episodes of vomiting and nausea. She also has had problems with 4-5 bouts of watery diarrhea a day. She is being followed by Dr. Macias as an outpatient. The patient presented with continuous abdominal pain and went to the emergency room for evaluation of her symptoms. She has had episodes of nausea with persistent pain rated 4-5/10. This is status post laparoscopic cholecystectomy. The patient is afebrile with no apparent shaking chills. MEDICATIONS AT HOME: Includes: - atorvastatin - BuSpar - Caltrate - Paxil - Plaquenil - eye drops of chloroquine - Lexapro - nortriptyline - propranolol - ranitidine - spironolactone. ALLERGIES: The patient is apparently allergic ESTROGENS AND NITROFURANTOIN. PAST MEDICAL HISTORY: Positive for: 1. Lupus. 2. Sjogren's syndrome. 3. Raynaud's. 4. Epilepsy. 5. Meniere's. 6. Chronic back pain. 7. Gastroesophageal reflux disease (GERD). 8. Anxiety. 9. Osteoarthritis. PAST SURGICAL HISTORY: History is positive for: 1. Tonsillectomy. 2. She is status post (C) section 3. Carpal tunnel release. 4. Left knee surgery. 5. Laparoscopic cholecystectomy. FAMILY HISTORY: Noncontributory to the above problem. REVIEW OF SYSTEMS: Also is noncontributory to the above problem. SOCIAL HISTORY: The patient denies cigarettes, says she occasionally smokes. Drugs: None. LABORATORY STUDIES: On admission shows a white count of 5300, hemoglobin and hematocrit (H and H) of 13.9 and 39.7, the patient's platelets were of 186,000. Chemistry showed liver functions that were elevated with a normal bilirubin. The patient's AST was 112, ALT was 442, alkaline phosphatase was 476. Labs have been coming down the past three days, with most recent transaminases 38, 209 and 320. IMAGING STUDIES: Performed because of the concern for possible common bile duct stones included a normal HIDA scan. Liver ultrasound was performed, which showed fatty liver. She is status post now cholecystectomy, apparent normal size common bile duct at 6 mm. Otherwise, no acute abnormality except for the fatty liver. The patient time also had an abdominal CT, which was read as essentially normal with moderate intra- and extrahepatic bile duct dilatation. They felt that the pancreas showed some signs of atrophy. Impression was some gastritis of the stomach. The patient is status post cholecystectomy, moderate intra- and extrahepatic biliary dilatation. There was some trace fluid around the liver, possibly related to the cholecystectomy. The patient as also had an magnetic resonance cholangiopancreatography (MRCP), which was completely normal with no evidence of choledocholithiasis. ANALYSIS: 1. Abnormal liver function tests. 2. Right upper quadrant pain. 3. Status post laparoscopic cholecystectomy. It is unclear whether the patient has some sand or gravel which may have caused the symptoms. The patient is going home today and no intervention is being contemplated at this time based on the essentially negative, at the time of admission, diagnostic tests. The patient may have passed sand and gravel, or she may have been may be having a flare up of her lupus. It is unclear. This may be causing her diarrhea and or abdominal pain. PLAN: 1. Would be that the patient follow up with Dr. Macias. The patient had suggested that he may be putting her on pancreatic enzyme replacement due to possible pancreatic insufficiency. 2. The patient has been advised to use a heating pad and use mild pain medications, such as intermittent Tylenol, for pain control, even in spite of the mild elevations of her liver functions. 3. The patient is being followed with a new sharepoint consultant in [place] and he will assess whether her lupus is flaring or not and maybe adjusting her medications for her connective tissue disorders. Follow up with Dr. Macias and her sharepoint consultant.
== END 2019-02-14 13:30 | disposition home or self-care (01) | DRG 392 ==
LOC: M ED 14:18 → M ED INP 20:38 → M PED 22:44
PROVIDERS: ADMIT Internal Medicine; ATTEND Internal Medicine
DX: R10.11 Right upper quadrant pain (principal); K83.8 Other specified diseases of biliary tract; M32.9 Systemic lupus erythematosus, unspecified; M35.00 Sjogren syndrome, unspecified; I73.00 Raynaud's syndrome without gangrene; G43.909 Migraine, unspecified, not intractable, without status migrainosus; G40.909 Epilepsy, unspecified, not intractable, without status epilepticus; H81.09 Meniere's disease, unspecified ear; R19.7 Diarrhea, unspecified; R11.2 Nausea with vomiting, unspecified; R94.5 Abnormal results of liver function studies; Z90.49 Acquired absence of other specified parts of digestive tract; Z79.899 Other long term (current) drug therapy; Z88.8 Allergy status to other drugs, medicaments and biological substances; F32.9 Major depressive disorder, single episode, unspecified; K76.0 Fatty (change of) liver, not elsewhere classified; M54.9 Dorsalgia, unspecified; K21.9 Gastro-esophageal reflux disease without esophagitis; F41.9 Anxiety disorder, unspecified; K86.89 Other specified diseases of pancreas; M19.90 Unspecified osteoarthritis, unspecified site

== ENCOUNTER → 2019-04-07 | Outpatient (REF) | payer MEDICARE, OTHER ==
[~2019-04-07] MED LIST changes: +RANI150T14 PO
[2019-04-07 15:12] LABS: CLOSTRIDIUM DIFFICILE PCR NEGATIVE (NEGATIVE)
== END ==
LOC: M LAB REF 13:58
PROVIDERS: ATTEND Internal Medicine Gastroenterology
DX: R93.3 Abnormal findings on diagnostic imaging of other parts of digestive tract (principal)

== ENCOUNTER 2019-04-13 13:21 | Day surgery (SDC) | payer MEDICARE, OTHER ==
[~2019-04-13] VITALS: Ht 154.9 cm; Wt 65.3 kg
[~2019-04-13 13:21] MED LIST changes: +LR 1,000 ML IV ONE; +NS 1,000 ML IV ONE
[2019-04-13] MEDS ORDERED: SUGAMMADEX SODIUM 500 MG/5 ML VIAL (BRIDION) As Ordered ONE (13:35)
[2019-04-13] MEDS ORDERED: ROCURONIUM BROMIDE 50 MG/5 ML VIAL As Ordered ONE (13:42)
[2019-04-13] MEDS ORDERED: LIDOCAINE 2% INJ 100 MG/5 ML SDV (FOR ANES.) As Ordered ONE (13:42)
[2019-04-13] MEDS ORDERED: MIDAZOLAM INJ 2 MG/2 ML VIAL (J2250) As Ordered ONE (13:42)
[2019-04-13] MEDS ORDERED: PROPOFOL 200 MG/20 ML VIAL As Ordered ONE (13:42)
[2019-04-13] MEDS ORDERED: fentaNYL 100 MCG/2 ML INJECTION (J3010) As Ordered ONE (13:43)
[2019-04-13] MEDS ORDERED: dexameTHASONE 4 MG/ML 1ML VIAL (J1100) As Ordered ONE (13:43)
[2019-04-13] MEDS ORDERED: ONDANSETRON 4MG/2ML VIAL (J2405) As Ordered ONE ×3 (13:43→17:30)
[2019-04-13] MEDS ORDERED: ISOVUE-300 61% 50ML VIAL (Q9967) As Ordered ONE (14:02)
[2019-04-13] MEDS ORDERED: METOCLOPRAMIDE INJ 10MG/2ML VIAL (J2765) As Ordered ONE (16:06)
[2019-04-13] MEDS ORDERED: ePHEDrine SULFATE 25 MG/5 ML(5MG/ML) SYRINGE As Ordered ONE (16:12)
--- NOTE | 2019-04-13 17:25 | ROOR ---
Patient Name: Mariama Bose Procedure Date: 04/13/2019 3:30 PM Date of : 1945 Age: 73 Room: [facility] Gender: Female Note Status: Finalized Procedure: ERCP Indications: Abdominal pain of suspected biliary origin, Abnormal MRCP, Elevated liver enzymes Providers: Jeromy TOSCANO MD Referring MD: Tom Neil DO Requesting Provider: Medicines: General Anesthesia Complications: No immediate complications. Procedure: Pre-Anesthesia Assessment: - The heart rate, respiratory rate, oxygen saturations, blood pressure, adequacy of pulmonary ventilation, and response to care were monitored throughout the procedure. The Duodenoscope was introduced through the mouth, and advanced to the duodenum and used to inject contrast into the bile duct. The ERCP was accomplished without difficulty. The patient tolerated the procedure well. Findings: The dough machine operator film was normal. The esophagus was successfully intubated under direct vision. The scope was advanced to a normal major papilla in the descending duodenum without detailed examination of the pharynx, larynx and associated structures, and upper GI tract. The upper GI tract was grossly normal. A straight Roadrunner wire was passed into the biliary tree. The bile duct was then deeply cannulated over the guidewire. Contrast was injected. I personally interpreted the bile duct and pancreatic duct images. Ductal flow of contrast was adequate. Image quality was adequate. Contrast extended to the hepatic ducts. Contrast extended to the pancreatic duct. The main bile duct was mildly dilated and moderately dilated, with fibrosis causing an obstruction. The largest diameter was 12 mm. The biliary orifice was stenotic. This appeared benign. A 9 mm biliary sphincterotomy was made with a traction (standard) sphincterotome using ERBE electrocautery. There was no post-sphincterotomy bleeding. The biliary tree was swept with a 9 mm balloon starting at the bifurcation. Nothing was found. A wire was passed into the ventral pancreatic duct. One 3 Fr by 5 cm temporary stent with a 3/4 internal pigtail was placed into the ventral pancreatic duct. Clear fluid flowed through the stent. The stent was in good position. The distal ampulla/papilla was biopsied with a cold forceps for histology. Impression: - The entire main bile duct was mildly dilated at 12 mm and does not drain spontaneously after contrast injection. - Biliary papillary stenosis was suspected. A biliary sphincterotomy was performed. - Biopsy was performed in the distal ampulla/papilla. - The biliary tree was swept and nothing was found. - One temporary stent was placed into the ventral pancreatic duct. Recommendation: - Observe patient's clinical course. - Telephone endoscopist for pathology results in 2 weeks. - Confirm spontaneous stent passage by performing a flat abdominal x-ray in 2 weeks. - Return to my office in 1 month. Jeromy Toscano MD Jeromy TOSCANO MD 04/13/2019 5:25:10 PM Electronically signed by Jeromy TOSCANO MD Number of Addenda: 0 Note Initiated On: 04/13/2019 3:30 PM Estimated Blood Loss: Estimated blood loss: none. Estimated blood loss: none.
[2019-04-13] MEDS ORDERED: LR 1,000 ML IV SCH (17:45)
[2019-04-13] MEDS ORDERED: ONDANSETRON 4MG/2ML VIAL (J2405) IV PRN (17:45)
[2019-04-13] MEDS ORDERED: fentaNYL 100 MCG/2 ML INJECTION (J3010) IV PRN (17:45)
[2019-04-13] MEDS ORDERED: PERCOCET 5MG/325MG TAB PO PRN (17:45)
[2019-04-13] MEDS ORDERED: HYDROMORPHONE HCL 0.5 MG/ 0.5 ML SYRINGE (J1170 PER 1) IV PRN (17:45)
[2019-04-13] MEDS ORDERED: PERCOCET 5MG/325MG TAB As Ordered ONE (18:49)
--- NOTE | 2019-04-13 18:52 | REP ---
REASON: History of dilated common bile duct. Seven fluoroscopic images were obtained by Dr. Macias during ERCP. 10 minutes and 6 seconds of fluoroscopy time was provided to Dr. Macias for the exam. Electronically Signed by Gary Murphy DO 04/13/2019 07:53 P
[2019-04-13 19:40] VITALS: BP 122/63
== END 2019-04-13 19:45 | disposition home or self-care (01) ==
LOC: M SDC 13:21
PROVIDERS: ATTEND Internal Medicine Gastroenterology
DX: K83.1 Obstruction of bile duct (principal); R10.9 Unspecified abdominal pain; R74.9 Abnormal serum enzyme level, unspecified; R93.2 Abnormal findings on diagnostic imaging of liver and biliary tract; I10 Essential (primary) hypertension; K21.9 Gastro-esophageal reflux disease without esophagitis; M32.10 Systemic lupus erythematosus, organ or system involvement unspecified; F41.9 Anxiety disorder, unspecified; F32.9 Major depressive disorder, single episode, unspecified; Z79.82 Long term (current) use of aspirin; Z79.899 Other long term (current) drug therapy; Z88.8 Allergy status to other drugs, medicaments and biological substances
CPT/HCPCS: 43261; 43274; 74330; 88305; C2625; J1100; J2250; J2405; J2765; J3010; Q9967

== ENCOUNTER → 2019-05-14 | Outpatient (CLI) | payer MEDICARE, OTHER ==
[~2019-05-14] MED LIST changes: -LR 1,000 ML IV ONE; -NS 1,000 ML IV ONE
--- NOTE | 2019-05-14 12:14 | REP ---
ABDOMINAL SERIES: Supine and erect views of the abdomen demonstrate no free air or obstruction. A few tiny phleboliths are seen in the pelvis. There is no radiographic evidence of a pancreatic stent in place. There are mild degenerative changes of the spine with curvature toward the left. IMPRESSION: No free air or obstruction. No radiopaque pancreatic stent is visualized radiographically. Electronically Signed by Chava Bravo MD 05/14/2019 07:09 P
== END ==
LOC: M RAD 10:51
PROVIDERS: ATTEND Internal Medicine Gastroenterology
DX: I87.8 Other specified disorders of veins (principal); T18.3XXA Foreign body in small intestine, initial encounter